=== PATIENT | male | born 1960 | race Caucasian/White ===

== ENCOUNTER 2022-04-29 10:32 | Emergency (ER) | payer OTHER, SELFPAY ==
[2022-04-29 10:49] VITALS: BP 155/103; PULSE 90; RESP 18; TEMP 36.9; O2SAT 100
--- NOTE | 2022-04-29 11:07 | ED.URI ---
HPI - URI/Sore Throat General Chief Complaint: Upper Respiratory Infection Stated Complaint: covid sx Time Seen by Provider: 04/29/22 10:59 Source: patient Mode of arrival: ambulatory Limitations: no limitations History of Present Illness HPI Narrative: Patient presents today with a 3 day history of nasal congestion, cough, chills, subjective fever, mild shortness of breath. He tested positive for COVID-19 yesterday. He called his PCP and was requesting Paxlovid prescription. PCP told him that he would not see him in the office because he had COVID and told him to come to [facility]. He has been using Flonase and ibuprofen without much relief. History of COPD. Smokes more than half a pack per day. has also tested positive. Related Data Home Medications Medication Instructions Recorded Confirmed amlodipine 10 mg tablet 10 mg DAILY 04/29/22 04/29/22 clopidogrel 75 mg tablet 75 mg DAILY 04/29/22 04/29/22 fenofibrate nanocrystallized 145 145 mg PO DAILY 04/29/22 04/29/22 mg tablet levothyroxine 75 mcg tablet 75 mcg DAILY 04/29/22 04/29/22 losartan 100 mg tablet 100 mg DAILY 04/29/22 04/29/22 montelukast 10 mg tablet 10 mg HS 04/29/22 04/29/22 pravastatin 20 mg tablet 20 mg DAILY 04/29/22 04/29/22 Allergies Allergy/AdvReac Type Severity Reaction Status Date / Time No Known Allergies Allergy Unverified 02/01/15 11:30 Review of Systems Review of Systems: CONSTITUTIONAL: Denies body aches, or sweats.+ chills, subjective fever EYES: Denies visual changes, redness, or discharge. ENT: Denies rhinorrhea, sore throat, or otalgia.+ congestion CARDIOVASCULAR: Denies chest pain, palpitations, or edema. RESPIRATORY: + cough, mild shortness of breath GASTROINTESTINAL: Denies abdominal pain, nausea, vomiting, or diarrhea. GENITOURINARY: Denies dysuria or hematuria. SKIN: Denies rash, itching, or wounds. MUSCULOSKELETAL: Denies back pain, joint pain, or myalgia. NEUROLOGIC: Denies headache, numbness, tingling, or weakness. PSYCH: Denies depression or anxiety. [facility] Past Medical History Medical History (Updated 04/29/22 @ 11:12 by Ariadna Deshpande, [facility], ) COPD (chronic obstructive pulmonary disease) Social History Social History (Updated 04/29/22 @ 11:10 by Ariadna Deshpande, [facility], ) Smoking status: Current every day smoker Tobacco type: cigarettes Comments At time of signature, I have reviewed and agree with nursing past medical, surgical, social and family history unless otherwise noted. Please see nursing chart for further information. There is no relevant family history pertinent to the presenting complaint Exam Narrative: GENERAL: Well-appearing, well-nourished, and in no acute distress. HEAD: Normocephalic, atraumatic. EYES: EOMI. No redness or drainage. Conjunctivae normal. ENT: Mucous membranes pink and moist. Nares congested. No rhinorrhea. TMs normal bilaterally. Throat normal. Uvula midline. NECK: Normal AROM. Supple. No lymphadenopathy. CHEST: No respiratory distress. Clear to auscultation. HEART: Regular rate and rhythm. No murmur appreciated. Normal peripheral pulses. EXTREMITIES: Normal range of motion. No edema. SKIN: Warm, dry, no rash. Capillary refill normal. Normal skin turgor. NEURO: No focal deficits. Alert and oriented x3. Gait steady. PSYCH: Normal affect. No signs of depression or anxiety. Course Course Level of Care: Express Care Visit Vital Signs Vital signs: Vital Signs Temperature 98.4 F 04/29/22 10:49 Pulse Rate 90 04/29/22 10:49 Respiratory Rate 18 04/29/22 10:49 Blood Pressure 155/103 H 04/29/22 10:49 Pulse Oximetry 100 04/29/22 10:49 Oxygen Delivery Room Air 04/29/22 10:49 Temperature 98.4 F 04/29/22 10:49 Pulse Rate 90 04/29/22 10:49 Respiratory Rate 18 04/29/22 10:49 Blood Pressure 155/103 H 04/29/22 10:49 Pulse Oximetry 100 04/29/22 10:49 Oxygen Delivery Room Air 04/29/22 10:49 Reviewed. Pt has bee
== END 2022-04-29 11:32 | disposition home or self-care (01) ==
PROVIDERS: Emergency Provider Nurse Practitioner; PCP Family Medicine
DX: U07.1 COVID-19 (principal); J44.9 Chronic obstructive pulmonary disease, unspecified; F17.210 Nicotine dependence, cigarettes, uncomplicated
CPT/HCPCS: 99213; G0463